=== PATIENT | female | born 1980 ===

== ENCOUNTER 2025-07-08 15:46 | Outpatient (AMB) | payer OTHER, SELFPAY ==
--- NOTE | 2025-07-08 15:50 | A.OFFPC_ITS ---
Vital Signs 07/08/25 16:20 Height 5 ft 4 in Weight 190 lb 6 oz BMI 32.7 BP 120/68 Blood Pressure Location Rt brachial Position Sitting Respiration 15 Pulse 98 Pulse Source Pulse Oximeter Temp 97.6 F Temp Source Temporal Artery Scan Pulse Oximetry (%) 98 Oxygen Delivery Method Room Air Intake Visit Reasons: other Intake Note: Ivory presents in the office today to establish care. Allergies No Known Allergies Allergy (Verified 07/08/25 16:11) Medication List - Last Reconciled 07/09/25 by CHAYO Yi acetaminophen 1,000 mg PO Q6H PRN ascorbate calcium (vitamin C) 500 mg PO DAILY escitalopram oxalate (Lexapro) 10 mg PO DAILY famotidine 40 mg PO DAILY gabapentin 300 mg PO TID levocetirizine (Xyzal) 5 mg PO DAILY levonorgestrel (Kyleena) intrauterine multivitamin (Daily Multi-Vitamin tablet) 1 tab PO DAILY phenazopyridine 95 mg PO TID PRN Saccharomyces boulardii (Daily Probiotic (S. boulardii)) 250 mg PO BID spironolactone 100 mg PO DAILY valacyclovir (Valtrex) 1,000 mg PO DAILY zinc amino acid chelate mg PO Tobacco use date assessed: 07/08/25 Dental Screening Dental Screen Date: 07/08/25 Did you have a dental visit in the last 12 months?: Yes Did you have a dental problem in the last 6 months where you did not have access to dental care?: No Was dental information given to patient?: Patient has dentist HPI HPI Comments History of Present Illness Details This is a 45-year-old female with a past medical history of chronic lower back pain, anxiety and depression, GERD with gastritis, acne and HSV presenting to establish care. The patient injured her lower back at work when lifting boxes several years ago. She has a protruding L5-S1 disc. She has bilateral sciatica. She completed 3 months of physical therapy. She saw Dr. Sierra who did not recommend surgery. She was referred to [facility]. She is waiting for workman's comp to approve this. She is also waiting on a call from her medical transcription editor to discuss the 2nd opinion with another surgeon. She takes gabapentin 900 mg nightly, and she also treats pain with acetaminophen and ibuprofen. It does help. She did not respond to Flexeril. Acne is treated with spironolactone. Her last physical was in February, but she did not have routine labs done because she was transferring care. Orders placed. She has an IUD. Recommended annual gynecology visit. Patient had colonoscopy and EGD when she was being evaluated for GERD and gastritis. She takes famotidine 40 mg daily. She is due for her next colonoscopy at age [age] years old. She has no family history of colon cancer. She has a history of gestational diabetes and would like a hemoglobin A1c checked. Anxiety and depression is treated with sertraline 150 mg daily. Patient does not find like it is very effective for her. She is interested in changing it. ROS: Constitutional: No unexplained weight loss, fever, chills or night sweats. Gastrointestinal: No blood in stools. See HPI Psychiatric: See HPI Physical exam: Constitutional: Alert, in no distress. Neck: Supple, Full range of motion. No lymphadenopathy. No palpable thyroid masses. Respiratory: Clear to auscultation. Cardiovascular: S1 S2 regular. No murmurs. Neurologic: No focal neurological deficits. Psychiatric: Normal mood and affect [facility] Medical History (Updated 07/09/25 @ 10:32 by CHAYO Yi) HSV (herpes simplex virus) infection Acne History of gestational diabetes Screening for cardiovascular condition Hx of mammogram Headache Anxiety and depression Malignant melanoma Acid reflux Gastritis Family History (Updated 07/08/25 @ 16:20 by Shanthi Holder CMA) Mother Hypertension Maternal Grandfather Hyperlipidemia Skin cancer Social History (Updated 07/08/25 @ 16:20 by Shanthi Holder CMA) Housing: Apartment Alcohol intake: current Patient Tobacco Use Status: Former Tobacco user Cigarette Packs Per Day: 1 Cigarettes Per Day: 5 Years Smoked: 10 e-Cigarette/Vaping Use: Former Use Second Hand Smoke Exposure: No Substance Use Type: Marijuana service: No Current occupational status: employed Current occupation: [employer] Current occupational exposures/hazards: No Cognitive needs: No Hearing needs: No Vision needs: No Female Reproductive History Menstrual Date of Mammogram: 12/05/23 Questionnaire PHQ-9 Over the last 2 weeks, how often have you been bothered by any of the following problems? 1. Little interest or pleasure in doing things: several days 2. Feeling down, depressed, or hopeless: more than half the days 3. Trouble falling or staying asleep, or sleeping too much: nearly every day 4. Feeling tired or having little energy: nearly every day 5. Poor appetite or overeating: more than half the days 6. Feeling bad about yourself - or that you are a failure or have let yourself or your family down: several days 7. Trouble concentrating on things, such as reading the newspaper or watching television: more than half the days 8. Moving or speaking so slowly that other people could have noticed. Or the opposite - being so fidgety or restless that you have been moving around a lot more than usual: more than half the days 9. Thoughts that you would be better off or of hurting yourself in some way: not at all Total score: 16 Depression Screening Interpretation: Positive Depression Screening Follow-up: Existing condition and New Medication prescribed Depression Screening Done: Yes 24679 - PHQ-9 Billing: Yes Source: Developed by Drs. Molina Soto, Lucille Arriaga, Supa Downey and colleagues, with an educational lisa from [employer]. Thrive Questionnaire Date Thrive assessed: 07/08/25 I am a: Patient What is your living situation today?: I have a steady place to live Within the past 12 months, did the food you bought not last and you didn't have the money to get more?: Never true Within the past 12 months, did you worry whether your food would run out before you got money to buy more?: Never true Do you have trouble paying for medicines?: No Do you have trouble getting transportation to medical appointments?: No Do you have trouble paying your heating and electricity bill?: No Do you have trouble taking care of your child, family member or friend?: No Do you have trouble with day-to-day activities such as bathing, preparing meals, shopping, managing finances, etc.?: No Are you currently unemployed and looking for a job?: No Are you interested in more education?: No Please select the resources that you would like help with: None Currently or been in a relationship where the following occur: No concerns reported THRIVE Score: 0 AUDIT C Alcohol Use Questionnaire (AUDIT-C) 1. How often do you have a drink containing alcohol?: Monthly or less 2. How many drinks containing alcohol do you have on a typical day when you are drinking?: 1 or 2 3. How often do you have six or more drinks on one occasion?: Never Total Score: 1 BETTY-7 AMB Questionnaire BETTY-7 Date BETTY - 7 assessed: 07/08/25 Feeling nervous, anxious, or on edge: 3 = Nearly every day Not being able to stop or control worryin = Nearly every day Worrying too much about different things: 3 = Nearly every day Trouble relaxin = Nearly every day Being so restless that it is hard to sit still: 3 = Nearly every day Becoming easily annoyed or irritable: 3 = Nearly every day Feeling afraid as if something awful might happen: 1 = Several days Total BETTY-7 score (0-4 normal; 5-9 mild; 10-14 moderate; 15-21 severe): 19 Source: Developed by Drs. Molina Soto, Lucille Arriaga, Supa Downey and colleagues, with an educational lisa from [employer]. BETTY-7 Assessment Billing BETTY-7 Assessment Tool: BETTY-7 Assessment 10389 Physical exam (Primary Care) Vital Signs: Last Vital Signs Temp 97.6 F 07/08/25 16:20 Pulse 98 07/08/25 16:20 Resp 15 07/08/25 16:20 BP 120/68 07/08/25 16:20 Pulse Ox 98 07/08/25 16:20 Oxygen Delivery Method Room Air 07/08/25 16:20 BMI result Body Mass Index 32.7 Tobacco/Smoking Status: Tobacco use Status Tobacco use date assessed 07/08/25 07/08/25 16:25 Patient Tobacco Use Status Former Tobacco user 07/08/25 16:25 e-Cigarette/Vaping Use Former Use 07/08/25 16:25 PHQ-9: PHQ-9 Score PHQ-9: Total score 16 07/08/25 16:54 Depression Screening Interpretation: Positive Depression Screening Follow-up: Existing condition and New Medication prescribed Thrive Assessment: Date of Thrive Assessment Date Thrive assessed 07/08/25 07/08/25 15:51 Currently or been in a relationship where the following occur: No concerns r eported Office Procedures Flu Questionnaire Does the patient have a severe egg allergy?: No Does the patient have severe life threatening allergies?: No Does the patient have a fever or illness today?: No Has the patient ever had Guillain-Salem Syndrome?: No Has the patient ever had any past reaction to a flu shot?: No Immunizations Fluarix 1641-5177 (PF) 45 mcg (15 mcg x 3)/0.5 mL IM syringe Performing Provider: CHAYO Yi Performing Location: [facility] [place] [facility] Administered by: Shanthi Holder CMA on 07/08/25 16:56 Dose Route Admin Location Dispensed Lot Number Expiration Date NDC Tape Deck Installer 0.5 mL IM Left Deltoid 0.5 mL [id number] 03/08/26 [id number] [employer] VIS Given Date VIS Provided VIS Publication Date 07/08/25 Single Vaccine 24 Eligibility Eligibility Date Funding Source Not [facility] Eligible 07/08/25 Private Coding Level of Care Code New Pt Level 4 (38949) Complex EM visit Add On G2211 Diagnoses Anxiety and depression F41.9; F32.A Screening for cardiovascular condition Z13.6 History of gestational diabetes Z86.32 Acne L70.9 HSV (herpes simplex virus) infection B00.9 Acid reflux K21.9 Additional Codes BETTY-7 Assessment Billing - BETTY-7 Assessment Tool: BETTY-7 Assessment 36315 ([id number]) PHQ-9 - 49439 - PHQ-9 Billing: Yes ([id number]) Assessment & Plan Assessment & Plan (1) Anxiety and depression: Code(s): F41.9 - Anxiety disorder, unspecified; F32.A - Depression, unspecified Category: Medical Plan: She would like to make a change to her medication regimen. She has not taken other SSRIs. We discussed options including titrating dose of Zoloft, addition of buspirone or trying a different SSRI. She would like to proceed with a trial of a different medication. We will switch to Lexapro with a cross taper. Black box warning reviewed. (2) Screening for cardiovascular condition: Code(s): Z13.6 - Encounter for screening for cardiovascular disorders Category: Medical (3) History of gestational diabetes: Code(s): Z86.32 - Personal history of gestational diabetes Category: Medical Plan: Check hemoglobin A1c. (4) Acne: Code(s): L70.9 - Acne, unspecified Category: Medical Plan: Continue spironolactone (5) HSV (herpes simplex virus) infection: Code(s): B00.9 - Herpesviral infection, unspecified Category: Medical Plan: Continue Valtrex. (6) Acid reflux: Code(s): K21.9 - Gastro-esophageal reflux disease without esophagitis Category: Medical Plan: Continue avoidance of triggers and continue famotidine. Plan Follow up in 4-6 weeks for med check. Orders: Orders Vitamin D 25-OH (D2 and D3) 07/08/25 F32.A - Depression, unspecified, F41.9 - Anxiety disorder, unspecified, Z13.6 - Encounter for screening for cardiovascular disorders, Z86.32 - Personal history of gestational diabetes Lipid Panel 07/08/25 E78.5 - Hyperlipidemia, unspecified, F32.A - Depression, unspecified, F41.9 - Anxiety disorder, unspecified, Z13.6 - Encounter for screening for cardiovascular disorders, Z86.32 - Personal history of gestational diabetes Comprehensive Met. Panel 07/08/25 F32.A - Depression, unspecified, F41.9 - Anxiety disorder, unspecified, Z13.6 - Encounter for screening for cardiovascular disorders, Z86.32 - Personal history of gestational diabetes Hemoglobin A1c 07/08/25 F32.A - Depression, unspecified, F41.9 - Anxiety disorder, unspecified, R73.9 - Hyperglycemia, unspecified, Z13.6 - Encounter for screening for cardiovascular disorders, Z86.32 - Personal history of gestational diabetes Complete Blood Count no Diff 07/08/25 F32.A - Depression, unspecified, F41.9 - Anxiety disorder, unspecified, Z13.6 - Encounter for screening for cardiovascular disorders, Z86.32 - Personal history of gestational diabetes Influenza 9020-4114 Immunization 07/08/25 Z23 - Encounter for immunization TSH reflex Free T4 Today F32.A - Depression, unspecified, F41.9 - Anxiety disorder, unspecified Referrals BREAD WRAPPER OPERATOR Referral Z01.419 - Encounter for gynecological examination (general) (routine) without abnormal findings Medications: New escitalopram oxalate (Lexapro) Week 1: take Lexapro 5 mg daily and reduce sertraline to 100 mg daily. Week 2: increase Lexapro to 10 mg and reduce sertraline to 50 mg daily. Week 3: continue Lexapro 10 mg daily and stop sertraline 50 mg daily. 10 mg PO DAILY 90 tabs 0RF
[2025-07-08 16:20] VITALS: BP 120/68; PULSE 98; RESP 15; TEMP 36.4; O2SAT 98; BMI 32.7
--- OUTSIDE RECORDS SUMMARY | 2025-07-08 18:08 | XMS_ITS | Encounter Summary ---
Author Organization [facility] Address [address] [facility] [address] [place] [phone] Phone Care Team Providers Care Insurance Verify Rep Name Role Phone Ivory Jimenez MD Unavailable [phone] Luis Andrews MD Unavailable [phone] Malissa Johnson MD Primary Care Provider [phone] Malissa Johnson MD Unavailable Dylan De Guzman MD Unavailable [phone] Malissa Johnson MD Unavailable Malissa Johnson MD Unavailable Encounter Details Date Type Department Care Team (Late st Contact Info) Description 04/10/2021 Ancillary Orders [facility] IM[facility] Imaging Services [address] [place], [place] [id number] System, Provider Not In, [facility] [address] [address] Social History Tobacco Use Types Packs/Day Years Used Date Smoking Tobacco: Former Cigarettes 0.3 10 0 01/29/2007 - 01/29/2017 Smokeless Tobacco: Never Alcohol Use Standard Drinks/Week Comments Yes 0 (1 standard drink = 0.6 oz pur e alcohol) social Comments No Sex and Gender Information Value Date Recorded Sex Assigned at Female 10/09/2023 3:20 PM EST Legal Sex Female 3:27 PM EDT Gender Identity Female 10/09/2023 3:20 PM EST Sexual Orientation Straight 10/09/2023 3: 20 PM EST documented as of this encounter Plan of Treatment Upcoming Encounters Date Type Department Care Team (Late st Contact Info) Description 03/16/2026 8:00 AM EDT Office Visit [facility] Primary Care [address] [address] Malissa Johnson MD [address] [place] [phone] [email or web address] documented as of this encounter Results * Mammogram Outside (No Interpretation) (02/18/2020 12:00 AM EDT) Narrative [facility] IM[facility] INTERFACES - 04/10/2021 10:10 AM EDT This study is for PACS storage only and not for interpretation. us Provider Not In System [facility] IM[facility] OUTSIDE IMAGING W /OUT INTERPRETATION Final Result Performing Organization Address [facility] de Phone Number [facility] INTERFACES * US Breast Outside (No Interpretation) (05/13/2019 12:05 AM EDT) Narrative [facility] INTERFACES - 04/10/2021 10:09 AM EDT This study is for PACS storage only and not for interpretation. us Provider Not In System [facility] OUTSIDE IMAGING W /OUT INTERPRETATION Final Result Performing Organization Address [facility] de Phone Number [facility] INTERFACES * Mammogram Outside (No Interpretation) (05/13/2019 12:00 AM EDT) Narrative [facility] IM[facility] INTERFACES - 04/10/2021 10:09 AM EDT This study is for PACS storage only and not for interpretation. us Provider Not In System [facility] OUTSIDE IMAGING W /OUT INTERPRETATION Final Result Performing Organization Address [facility] de Phone Number [facility] INTERFACES documented in this encounter Visit Diagnoses Not on filedocumented in this encounter Additional Health Concerns Assessment Noted Time PHQ-2 Depression Total Score: 1 09/19/19 21 2:57 PM EST documented as of this encounter Care Teams Insurance Verify Rep Relationship Specialty Start Date End Date Malissa Johnson MD PCP - General Internal Medicine 06/14/20 Ivory Jimenez MD Dermatology 04/28/18 Luis Andrews MD Dermatology 04/23/19 Malissa Johnson MD [address] [place] [phone] Insurance Assigned Provider 11/12/21 01/13/22 Dylan De Guzman MD [address] [place] [address] [email or web address] Insurance Assigned Provider 01/13/22 02/17/22 Malissa Johnson MD [address] [place] [phone] Insurance Assigned Provider 02/17/22 06/16/22 Malissa Johnson MD [address] [place] [phone] Insurance Assigned Provider 12/14/23 03/20/25 documented as of this encounter Additional Source Comments The information contained in this document represents components of the legal health record. It is not the complete legal health record.[facility]
--- OUTSIDE RECORDS SUMMARY | 2025-07-08 18:08 | XMS_ITS | Encounter Summary ---
Author Organization [facility] Address [email or web address] [facility] [address] [place] [phone] Phone Care Team Providers Care Embedded Case Manager Name Role Phone Ivory Jimenez MD Unavailable [phone] Luis Andrews MD Unavailable Malissa Johnson MD Primary Care Provider [phone] Malissa Johnson MD Unavailable Encounter Details Date Type Department Care Team (Late st Contact Info) Description 10/30/2022 Procedure [facility]- Breast Imaging- [address] [address] Social History Tobacco Use Types Packs/Day Years Used Date Smoking Tobacco: Former Cigarettes 0.3 10 0 01/29/2007 - 01/29/2017 Passive Smoke Exposure: Never Smokeless Tobacco: Never Alcohol Use Standard Drinks/Week [...] Description 03/16/2026 8:00 AM EDT Office Visit [facility] Primary Care [address] [address] Malissa Johnson MD [address] [place] [phone] [email or web address] documented as of this encounter Visit Diagnoses Not on filedocumented in this encounter Additional Health Concerns Assessment Noted Time PHQ-2 Depression Total Score: 1 02/06/20 23 12:24 PM EDT documented as of this encounter Care Teams Embedded Case Manager Relationship Specialty Start Date End Date Malissa Johnson MD PCP - General Internal Medicine 06/14/20 Ivory Jimenez MD Dermatology 04/28/18 Luis Andrews MD Dermatology 04/23/19 Malissa Johnson MD [address] [place] [phone] Insurance Assigned Provider 12/14/23 03/20/25 documented as of this encounter Additional Source Comments The information contained in this document represents components of the legal health record. It is not the complete legal health record.[facility]
--- OUTSIDE RECORDS SUMMARY | 2025-07-08 18:08 | XMS_ITS | Encounter Summary ---
Author Organization [facility] Address [address] [place] [address] Phone Care Team Providers Care Principal Associate Name Role Phone Ivory Jimenez MD Unavailable Luis Andrews MD Unavailable Malissa Johnson MD Primary Care Provider Malissa Johnson MD Unavailable Encounter Details Date Type Department Care Team (Late st Contact Info) Description 12/25/2024 Ancillary Orders [facility]- Breast Imaging, [facility] [address] [place], [place] [phone] Malissa Johnson MD [address] [place] [phone] [email or web address] Breast symptom (Primary Dx) Social History Tobacco Use Types Packs/Day Years Used Date Smoking Tobacco: Former Cigarettes 0.3 10 0 01/29/2007 - 01/29/2017 Passive Smoke Exposure: Never Smokeless Tobacco: Never Alcohol Use Standard Drinks/Week Comments Yes 0 (1 standard drink = 0.6 oz pur e alcohol) social Education Answer Date Recorded Are you interested in more education? Not on francis e 01/03/2023 Are you concerned about learning? Not on file 01/03/2023 No 01/03/2023 No 01/03/2023 Digital Access Answer Date Recorded No 01/30/2023 No 01/30/2023 Reliable internet access at home? Not on file 01/30/2023 Device with a working camera? Not on file Intimate Partner Violence Answer Date R ecorded Denied Basic Needs Not on file 02/13/2024 In the past 12 months have y ou been in a relationship with a person who hurts, threatens, or tries to control you? No 02/13/2024 Worried food would run out Not on file 02/12 In the past 12 months have y ou been in a relationship with a person who hurts, threatens, or tries to control you? No 02/13/2024 Comments No Sex and Gender Information Value [...] Description 03/16/2026 8:00 AM EDT Office Visit [facility] Primary Care [address] [address] Malissa Johnson MD [address] [place] [phone] [email or web address] Scheduled Orders Name Type Priority Associated Diagnoses Orde r Schedule US Breast (Right) Imaging Routine Breast symptom 1 Occurrences starting 12/25/2024 until 12/25/2026 documented as of this encounter Visit Diagnoses Diagnosis Breast symptom- Primary documented in this encounter Additional Health Concerns Assessment Noted Time PHQ-2 Depression Total Score: 2 02/13/20 24 10:46 AM EDT documented as of this encounter Care Teams Principal Associate Relationship Specialty Start Date End Date Malissa Johnson MD [email or web address] PCP - General Internal Medicine 06/14/20 Ivory Jimenez MD [email or web address] Dermatology 04/28/18 Luis Andrews MD Dermatology 04/23/19 Malissa Johnson MD [address] [place] [address] [email or web address] Insurance Assigned Provider 12/14/23 03/20/25 documented as of this encounter Additional Source Comments The information contained in this document represents components of the legal health record. It is not the complete legal health record.[facility]
--- OUTSIDE RECORDS SUMMARY | 2025-07-08 18:08 | XMS_ITS | Encounter Summary ---
Author Organization [facility] Address [address] [place] [address] Phone Care Team Providers Care Medical Device Engineer Name Role Phone Ivory Jimenez MD Unavailable [phone] Luis Andrews MD Unavailable Malissa Johnson MD Primary Care Provider Malissa Johnson MD Unavailable Dylan De Guzman MD Unavailable [phone] Malissa Johnson MD Unavailable Malissa Johnson MD Unavailable Encounter Details Date Type Department Care Team (Late st Contact Info) Description 04/06/2021 Procedure [facility], Breast Ultrasound [address] [place] [address] Social History Tobacco Use Types Packs/Day Years [...] 03/16/2026 8:00 AM EDT Office Visit [facility] [address] [address] Malissa Johnson MD [address] [place] [address] [email or web address] documented as of this encounter Visit Diagnoses Not on filedocumented in this encounter Additional Health Concerns Assessment Noted Time PHQ-2 Depression Total Score: 1 09/19/19 21 2:57 PM EST documented as of this encounter Care Teams Medical Device Engineer Relationship Specialty Start Date End Date Malissa Johnson MD PCP - General Internal Medicine 06/14/20 Ivory Jimenez MD Dermatology 04/28/18 Luis Andrews MD Dermatology 04/23/19 Malissa Johnson MD [address] [place] [phone] Insurance Assigned Provider 11/12/21 01/13/22 Dylan De Guzman MD [address] [place] [phone] Insurance Assigned Provider 01/13/22 02/17/22 Malissa Johnson MD [address] [place] [address] [email or web address] Insurance Assigned Provider 02/17/22 06/16/22 Malissa Johnson MD [address] [place] [address] [email or web address] Insurance Assigned Provider 12/14/23 03/20/25 documented as of this encounter Additional Source Comments The information contained in this document represents components of the legal health record. It is not the complete legal health record.[facility]
--- OUTSIDE RECORDS SUMMARY | 2025-07-08 18:08 | XMS_ITS | Encounter Summary ---
Author Organization [facility] Address [email or web address] [place] [address] Phone Care Team Providers Care Coremaking Machine Operator Name Role Phone Tony Ivory Trujillo MD Unavailable Luis Andrews MD Unavailable [phone] Holland Mercer MD Primary Care Provider Malissa Johnson MD Primary Care Provider [phone] Malissa Johnson MD Unavailable Malissa Johnson MD Unavailable Dylan De Guzman MD Unavailable [phone] Malissa Johnson MD Unavailable Malissa Johnson MD Unavailable Encounter Details Date Type Department Care Team (Latest Contact Info) Description 10/22/2019 Transcribe Orders [facility] [place] [place] [address] [place] [address] Angela Cobb MD [address] [place] [address] [email or web address] Otalgia of both ears (Primary Dx) Social History Tobacco Use Types [...] Description 03/16/2026 8:00 AM EDT Office Visit [facility] [address] [address] Malissa Johnson MD [address] [place] [address] [email or web address] Scheduled Orders Name Type Priority Associated Diagnoses Orde r Schedule Hearing Test Audiology Routine Otalgia of both ears Expected: 10/22/2019, Expires: 10/22/2020 documented as of this encounter Visit Diagnoses Diagnosis Otalgia of both ears- Primary documented in this encounter Additional Health Concerns Infection Onset Date Last Indicated Resolved Time CoV-Exposed Comment:Recent close contact 06/21/2020 06/21/2020 07/05/2020 1:24 AM EDT CoV-Exposed Comment:Recent close contact 07/28/2020 07/28/2020 08/11/2020 1:23 AM EST Assessment Noted Time PHQ-2 Depression Total Score: 0 10/17/19 8:26 AM EST documented as of this encounter Care Teams Coremaking Machine Operator Relationship Specialty Start Date End Date Holland Mercer MD [address] [place] [address] [email or web address] PCP - General Internal Medicine 07/20/19 06/13/20 Malissa Johnson MD [address] [place] [address] PCP - General Internal Medicine 06/14/20 Ivory Jimenez MD Dermatology 04/28/18 Luis Andrews MD Dermatology 04/23/19 Malissa Johnson MD [address] [place] [address] [email or web address] Insurance Assigned Provider 08/14/20 03/18/21 Malissa Johnson MD [address] [place] [address] [email or web address] Insurance Assigned Provider 11/12/21 01/13/22 Dylan De Guzman MD [address] [place] [address] [email or web address] Insurance Assigned Provider 01/13/22 02/17/22 Malissa Johnson MD [address] [place] [address] [email or web address] Insurance Assigned Provider 02/17/22 06/16/22 Malissa Johnson MD [address] [place] [address] [email or web address] Insurance Assigned Provider 12/14/23 03/20/25 documented as of this encounter Additional Source Comments The information contained in this document represents components of the legal health record. It is not the complete legal health record.[facility]
--- OUTSIDE RECORDS SUMMARY | 2025-07-08 18:08 | XMS_ITS | Encounter Summary ---
Author Organization [facility] Address [address] [place] [address] Phone Care Team Providers Care Special Projects Manager Name Role Phone Ivory Jimenez MD Unavailable [phone] Luis Andrews MD Unavailable Malissa Johnson MD Primary Care Provider Malissa Johnson MD Unavailable Encounter Details Date Type Department Care Team (Late st Contact Info) Description 01/21/2024 Ancillary Orders [facility] Primary Care [address] [address] Malissa Johnson MD [address] [place] [phone] [email or web address] Visit for screening (Primary Dx) Social History Tobacco Use Types [...] with a working camera? Not on file Comments No Sex and Gender Information Value [...] Description 03/16/2026 8:00 AM EDT Office Visit [facility] Primary Care [address] [address] Malissa Johnson MD [address] [place] [address] [email or web address] documented as of this encounter Results * BI MAMMOGRAM SCREENING WITH TOMOSYNTHESIS WITH CAD (BILATERAL) (12/25/2024 12:05 PM EDT) Anatomical Region Laterality Modality Breast Left, Breast Right, Breast Bilateral Bila teral Mammography 12/25/2024 12:0 6 PM EDT Impressions 12/25/2024 12:09 PM EDT 1. No mammographic abnormality in the right breast. However, the patient reports clinical symptoms for which additional imaging evaluation is recommended with ultrasound. 2. No mammographic evidence of malignancy in the left breast. BI-RADS 0-S INCOMPLETE Needs additional imaging evaluation The patient will be notified of the results and recommendations. The mammography department will contact the patient to arrange for the additional imaging. Narrative 12/25/2024 12:09 PM EDT BI MAMMOGRAM SCREENING WITH TOMOSYNTHESIS WITH CAD (BILATERAL) Additional patient information: Screening. Right breast pain. COMPARISON: Comparison is made with relevant prior imaging. Breast composition: There are scattered areas of fibroglandular density. FINDINGS: Right No significant masses, suspicious calcifications or other abnormalities are identified mammographically in the right breast. Left No abnormal masses, suspicious calcifications, or other significant findings are identified mammographically in the left breast. Procedure Note Cora Dennis MD - 12/25/2024 BI MAMMOGRAM SCREENING WITH TOMOSYNTHESIS WITH CAD (BILATERAL) Additional patient information: Screening. Right breast pain. COMPARISON: Comparison is made with relevant prior imaging. Breast composition: There are scattered areas of fibroglandular density. FINDINGS: Right No significant masses, suspicious calcifications or other abnormalitiesare identified mammographically in the right breast. Left No abnormal masses, suspicious calcifications, or other significantfindings are identified mammographically in the left breast. IMPRESSION: 1. No mammographic abnormality in the right breast. However, the patientreports clinical symptoms for which additional imaging evaluation isrecommended with ultrasound. 2. No mammographic evidence of malignancy in the left breast. BI-RADS 0-S INCOMPLETE Needs additional imaging evaluation The patient will be notified of the results and recommendations. Themammography department will contact the patient to arrange for theadditional imaging. Malissa Johnson MD IMG MG EXAMS Final Result documented in this encounter Visit Diagnoses Diagnosis Visit for screening- Primary Visit for screening documented in this encounter Additional Health Concerns Assessment Noted Time PHQ-2 Depression Total Score: 1 02/06/20 23 12:24 PM EDT documented as of this encounter Care Teams Special Projects Manager Relationship Specialty Start Date End Date Malissa Johnson MD PCP - General Internal Medicine 06/14/20 Ivory Jimenez MD Dermatology 04/28/18 Luis Andrews MD Dermatology 04/23/19 Malissa Johnson MD [address] [place] [address] (work) [email or web address] Insurance Assigned Provider 12/14/23 03/20/25 documented as of this encounter Additional Source Comments The information contained in this document represents components of the legal health record. It is not the complete legal health record.[facility]
--- OUTSIDE RECORDS SUMMARY | 2025-07-08 18:08 | XMS_ITS | Encounter Summary ---
Author Organization [facility] Address [address] [place] [address] Phone Care Team Providers Care Housekeeper Supervisor Name Role Phone Malissa Johnson MD Primary Care Provider [phone] Malissa Johnson MD Unavailable Ivory Jimenez MD Unavailable [phone] Luis Andrews MD Unavailable Holland Mercer MD Primary Care Provider [phone] Malissa Johnson MD Unavailable Malissa Johnson MD Primary Care Provider [phone] Malissa Johnson MD Unavailable Malissa Johnson MD Unavailable Dylan De Guzman MD Unavailable [phone] Malissa Johnson MD Unavailable Malissa Johnson MD Unavailable Encounter Details Date Type Department Care Team (Late st Contact Info) Description 01/30/2017 Transcribe Orders [facility] [address] [place] [address] Briana Anderson, ANAID [address] [place] [address] [email or web address] Abdominal pain, generalized (Primary Dx) Social History Tobacco Use Types Packs/Day Years Used Date Smoking Tobacco: Former Cigarettes Q uit: 06/06/2011 Comments Unknown Sex and Gender Information Value Date Recorded Sex Assigned at Female 10/09/2023 3:20 PM EST Legal Sex Female 3:27 PM EDT Gender Identity Female 10/09/2023 3:20 PM EST Sexual Orientation Straight 10/09/2023 3: 20 PM EST documented as of this encounter Plan of Treatment Upcoming Encounters Date Type Department Care Team (Late st Contact Info) Description 03/16/2026 8:00 AM EDT Office Visit [facility] Primary Care [address] [address] Malissa Johnson MD [address] [place] [address] [email or web address] documented as of this encounter Results * H. pylori antigen, stool (01/30/2017 2:56 PM EDT) [facility] H[employer] Negative Negative [facility] DPT OF LAB MED AND PAT+ Stool (Stool) 01/30/2017 2:5 6 PM EDT 01/30/2017 5:30 PM EDT Briana Anderson NP BODY FLUIDS AND STOOLS ORDERABLES Final Result [facility] DPT OF LAB MED AND PAT+ [address] [place] [address] documented in this encounter Visit Diagnoses Diagnosis Abdominal pain, generalized- Primary documented in this encounter Additional Health Concerns Infection Onset Date Last Indicated Resolved Time CoV-Exposed Comment:Recent close contact 06/21/2020 06/21/2020 07/05/2020 1:24 AM EDT CoV-Exposed Comment:Recent close contact 07/28/2020 07/28/2020 08/11/2020 1:23 AM EST documented as of this encounter Care Teams Housekeeper Supervisor Relationship Specialty Start Date End Date Malissa Johnson MD [email or web address] PCP - General Internal Medicine 07/19/17 07/19/19 Holland Mercer MD [address] [place] [phone] [email or web address] PCP - General Internal Medicine 07/20/19 06/13/20 Malissa Johnson MD [email or web address] PCP - General Internal Medicine 06/14/20 Malissa Johnson MD [address] [place] [address] [email or web address] Insurance Assigned Provider 12/07/17 07/19/19 Ivory Jimenez MD [address] [place] [address] [email or web address] Dermatology 04/28/18 Luis Andrews MD [address] [place] [phone] [email or web address] Dermatology 04/23/19 Malissa Johnson MD [address] [place] [address] [email or web address] Insurance Assigned Provider 12/07/17 10/09/19 Malissa Johnson MD [address] [place] [phone] Insurance Assigned Provider 08/14/20 03/18/21 Malissa Johnson MD [address] [place] [address] [email or web address] Insurance Assigned Provider 11/12/21 01/13/22 Dylan De Guzman MD [address] [place] [address] [email or web address] Insurance Assigned Provider 01/13/22 02/17/22 Malissa Johnson MD [address] [place] [phone] Insurance Assigned Provider 02/17/22 06/16/22 Malissa Johnson MD [address] [place] [address] [email or web address] Insurance Assigned Provider 12/14/23 03/20/25 documented as of this encounter Additional Source Comments The information contained in this document represents components of the legal health record. It is not the complete legal health record.[facility]
--- OUTSIDE RECORDS SUMMARY | 2025-07-08 18:08 | XMS_ITS | Encounter Summary ---
Author Organization [facility] Address [address] [place] [address] Phone Care Team Providers Care Roof Foreman Name Role Phone Ivory Jimenez MD Unavailable Luis Andrews MD Unavailable Malissa Johnson MD Primary Care Provider Malissa Johnson MD Unavailable Encounter Details Date Type Department Care Team (Late st Contact Info) Description 10/01/2022 Ancillary Orders [facility]- Breast Imaging, [facility] [address] [place], [place] [id number] Malissa Johnson MD [address] [place] [address] [email or web address] Abnormal finding on breast imaging Social History Tobacco Use Types Packs/Day Years [...] 03/16/2026 8:00 AM EDT Office Visit [facility] Primary Care [address] [address] Malissa Johnson MD [address] [place] [address] [email or web address] documented as of this encounter Results * BI MAMMOGRAM DIAGNOSTIC WITH TOMOSYNTHESIS WITH CAD (RIGHT) (10/30/2022 9:02 AM EST) Anatomical Region Laterality Modality Breast Right, Breast Bilateral Right M ammography 10/30/2022 9:14 AM EST Impressions 10/30/2022 9:19 AM EST Right Breast: Negative, no mammographic evidence of malignancy. Right Assessment: BI-RADS 1 Negative. Right Recommendation: Right Mammography Screening Right Recommendation Due Date: 12 Months OVERALL Assessment: BI-RADS 1 Negative. Results were discussed with the patient at the time of the study. The recommendation above has been entered into a reminder system to monitor and facilitate patient compliance. Narrative 10/30/2022 9:19 AM EST Indication: Questioned right asymmetry on recent screening mammogram. TECHNIQUE: Digital Mammography and tomosynthesis were used to obtain images. Computer Aided Detection was used to aid in interpretation. COMPARISON: Comparison is made with relevant prior imaging in PACS. Density: There are scattered areas of fibroglandular density FINDINGS: Right Breast: The questioned asymmetry in the upper MLO view at middle depth seen recent screening study does not persist on additional imaging, consistent with benign superimposition of breast parenchyma. No significant masses, suspicious calcifications, or other abnormalities are seen. Procedure Note Emilee Shearer MD - 10/30/2022 Indication: Questioned right asymmetry on recent screening mammogram. TECHNIQUE: Digital Mammography and tomosynthesis were used to obtain images. ComputerAided Detection was used to aid in interpretation. COMPARISON: Comparison is made with relevant prior imaging in PACS. Density: There are scattered areas of fibroglandular density FINDINGS: Right Breast: The questioned asymmetry in the upper MLO view at middle depth seen recentscreening study does not persist on additional imaging, consistent withbenign superimposition of breast parenchyma. No significant masses,suspicious calcifications, or other abnormalities are seen. IMPRESSION: Right Breast: Negative, no mammographic evidence of malignancy. Right Assessment: BI-RADS 1 Negative. Right Recommendation: Right Mammography Screening Right Recommendation Due Date: 12 Months OVERALL Assessment: BI-RADS 1 Negative. Results were discussed with the patient at the time of the study. The recommendation above has been entered into a reminder system tomonitor and facilitate patient compliance. us Malissa Johnson MD IMG MG EXAMS Final Result documented in this encounter Visit Diagnoses Diagnosis Abnormal finding on breast imaging Abnormal finding on breast imaging documented in this encounter Additional Health Concerns Assessment Noted Time PHQ-2 Depression Total Score: 0 02/01/20 22 12:43 PM EDT documented as of this encounter Care Teams Roof Foreman Relationship Specialty Start Date End Date Malissa Johnson MD PCP - General Internal Medicine 06/14/20 Ivory Jimenez MD Dermatology 04/28/18 Luis Andrews MD Dermatology 04/23/19 Malissa Johnson MD [address] [place] [phone] Insurance Assigned Provider 12/14/23 03/20/25 documented as of this encounter Additional Source Comments The information contained in this document represents components of the legal health record. It is not the complete legal health record.[facility]
--- OUTSIDE RECORDS SUMMARY | 2025-07-08 18:08 | XMS_ITS | Encounter Summary ---
Author Organization [facility] Address [address] [place] [address] Phone Care Team Providers Care Swing Saw Operator Name Role Phone Ivory Jimenez MD Unavailable [phone] Luis Andrews MD Unavailable [phone] Malissa Johnson MD Primary Care Provider Malissa Johnson MD Unavailable Encounter Details Date Type Department Care Team (Late st Contact Info) Description 10/30/2022 Ancillary Orders [facility] [address] [place] [address] Malissa Johnson MD [address] [place] [address] Visit for screening Social History Tobacco Use Types Packs/Day Years [...] 03/16/2026 8:00 AM EDT Office Visit [facility] Primary Care [address] [address] Malissa Johnson MD [address] [place] [phone] [email or web address] documented as of this encounter Results * (ABNORMAL) BI MAMMOGRAM SCREENING WITH TOMOSYNTHESIS WITH CAD (BILATERAL) (11/01/2023 2:14 PM EST) Anatomical Region Laterality Modality Breast Left, Breast Right, Breast Bilateral Bila teral Mammography 11/04/2023 6:35 AM EST Impressions 11/04/2023 1:13 PM EST 1. Asymmetry in the left breast for which additional imaging is recommended with diagnostic mammography and possible ultrasound. 2. No mammographic evidence of malignancy in the right breast. BI-RADS 0 INCOMPLETE Needs additional imaging evaluation The patient will be notified of the results and recommendations. The mammography department will contact the patient to arrange for the additional imaging. Narrative 11/04/2023 1:13 PM EST BI MAMMOGRAM SCREENING WITH TOMOSYNTHESIS WITH CAD (BILATERAL) Additional patient information: Screening. COMPARISON: Comparison is made with relevant prior imaging. Breast composition: There are scattered areas of fibroglandular density. FINDINGS: Right No abnormal masses, suspicious calcifications, or other significant findings are identified mammographically in the right breast. Left An asymmetry is present on MLO view in the central left breast at anterior depth. Procedure Note Cleo Briceno MBBS - 11/04/2023 BI MAMMOGRAM SCREENING WITH TOMOSYNTHESIS WITH CAD (BILATERAL) Additional patient information: Screening. COMPARISON: Comparison is made with relevant prior imaging. Breast composition: There are scattered areas of fibroglandular density. FINDINGS: Right No abnormal masses, suspicious calcifications, or other significantfindings are identified mammographically in the right breast. Left An asymmetry is present on MLO view in the central left breast at anteriordepth. IMPRESSION: 1. Asymmetry in the left breast for which additional imaging isrecommended with diagnostic mammography and possible ultrasound. 2. No mammographic evidence of malignancy in the right breast. BI-RADS 0 INCOMPLETE Needs additional imaging evaluation The patient will be notified of the results and recommendations. Themammography department will contact the patient to arrange for theadditional imaging. us Malissa Johnson MD IMG MG EXAMS Final Result documented in this encounter Visit Diagnoses Diagnosis Visit for screening Visit for screening documented in this encounter Additional Health Concerns Assessment Noted Time PHQ-2 Depression Total Score: 0 02/01/20 22 12:43 PM EDT documented as of this encounter Care Teams Swing Saw Operator Relationship Specialty Start Date End Date Malissa Johnson MD PCP - General Internal Medicine 06/14/20 Ivory Jimenez MD Dermatology 04/28/18 Luis Andrews MD Dermatology 04/23/19 Malissa Johnson MD [address] [place] [phone] Insurance Assigned Provider 12/14/23 03/20/25 documented as of this encounter Additional Source Comments The information contained in this document represents components of the legal health record. It is not the complete legal health record.[facility]
--- OUTSIDE RECORDS SUMMARY | 2025-07-08 18:08 | XMS_ITS | Encounter Summary ---
Author Organization [facility] Address [address] [facility] [address] [place] [address] Phone Care Team Providers Care Pharmacology Teacher Name Role Phone Ivoyr Jimenez MD Unavailable [phone] Luis Andrews MD Unavailable [phone] Malissa Johnson MD Primary Care Provider Malissa Johnson MD Unavailable Dylan De Guzman MD Unavailable [phone] Malissa Johnson MD Unavailable Malissa Johnson MD Unavailable Encounter Details Date Type Department Care Team (Late st Contact Info) Description 04/06/2021 Ancillary Orders [facility] [address] [place] [id number] Bettina Orozco NP [address] [facility] [address] [place] [address] Breast pain, left Social History Tobacco Use Types Packs/Day Years [...] Description 03/16/2026 8:00 AM EDT Office Visit [facility] Primary Care [address] [address] Malissa Johnson MD [address] [place] [id number] [email or web address] documented as of this encounter Results * BI US BREAST LIMITED (LEFT) (05/25/2021 10:14 AM EDT) Anatomical Region Laterality Modality Breast Left, Breast Bilateral Left Ul trasound 05/25/2021 10:0 8 AM EDT Impressions 05/25/2021 10:59 AM EDT Left Breast: No mammographic evidence of malignancy. No suspicious sonographic finding at the area of pain. Management of breast pain should be based on the clinical level of concern. Clinical evaluation and follow-up are recommended, with management to be determined based on the clinical assessment. Left Assessment: BI-RADS 1 Negative. Left Recommendation: Left Mammography Screening Left Recommendation Due Date: 12 Months Right Breast: Negative, no mammographic evidence of malignancy. Right Assessment: BI-RADS 1 Negative. Right Recommendation: Right Mammography Screening Right Recommendation Due Date: 12 Months OVERALL Assessment: BI-RADS 1 Negative. Results were discussed with the patient at the time of the study. The recommendation above has been entered into a reminder system to monitor and facilitate patient compliance. Narrative 05/25/2021 10:59 AM EDT Focal intermittent pain in the upper outer left breast for 19 months. TECHNIQUE: Digital Mammography and tomosynthesis were used to obtain images. Computer Aided Detection was used to aid in interpretation. Real-time ultrasound was performed using a high-frequency linear array transducer. COMPARISON: Comparison is made with relevant prior imaging in PACS. Density: There are scattered areas of fibroglandular density FINDINGS: Left Breast: No significant masses, suspicious calcifications, or other abnormalities are seen. Targeted US was performed at the area of pain as indicated by the patient from 1:00-3:00, 6 cm FN. There is no suspicious solid or cystic mass. Normal fibroglandular tissue is identified. Right Breast: No significant masses, suspicious calcifications, or other abnormalities are seen. Procedure Note Beba Aponte MD - 05/25/2021 Focal intermittent pain in the upper outer left breast for 19 months. TECHNIQUE: Digital Mammography and tomosynthesis were used to obtain images. ComputerAided Detection was used to aid in interpretation. Real-time ultrasoundwas performed using a high-frequency linear array transducer. COMPARISON: Comparison is made with relevant prior imaging in PACS. Density: There are scattered areas of fibroglandular density FINDINGS: Left Breast: No significant masses, suspicious calcifications, or other abnormalitiesare seen. Targeted US was performed at the area of pain as indicated by the patientfrom 1:00-3:00, 6 cm FN. There is no suspicious solid or cystic mass.Normal fibroglandular tissue is identified. Right Breast: No significant masses, suspicious calcifications, or other abnormalitiesare seen. IMPRESSION: Left Breast: No mammographic evidence of malignancy. No suspicioussonographic finding at the area of pain. Management of breast pain shouldbe based on the clinical level of concern. Clinical evaluation andfollow-up are recommended, with management to be determined based on theclinical assessment. Left Assessment: BI-RADS 1 Negative. Left Recommendation: Left Mammography Screening Left Recommendation Due Date: 12 Months Right Breast: Negative, no mammographic evidence of malignancy. Right Assessment: BI-RADS 1 Negative. Right Recommendation: Right Mammography Screening Right Recommendation Due Date: 12 Months OVERALL Assessment: BI-RADS 1 Negative. Results were discussed with the patient at the time of the study. The recommendation above has been entered into a reminder system tomonitor and facilitate patient compliance. us Bettina Orozco NP IMG US BREAST Final Result documented in this encounter Visit Diagnoses Diagnosis Breast pain, left Breast pain, left documented in this encounter Additional Health Concerns Assessment Noted Time PHQ-2 Depression Total Score: 1 09/19/19 21 2:57 PM EST documented as of this encounter Care Teams Pharmacology Teacher Relationship Specialty Start Date End Date Malissa Johnson MD [email or web address] PCP - General Internal Medicine 06/14/20 Ivory Jimenez MD Dermatology 04/28/18 Luis Andrews MD Dermatology 04/23/19 Malissa Johnson MD [address] [place] [phone] [email or web address] Insurance Assigned Provider 11/12/21 01/13/22 Dylan De Guzman MD [address] [place] [id number] [email or web address] Insurance Assigned Provider 01/13/22 02/17/22 Malissa Johnson MD [address] [place] [phone] Insurance Assigned Provider 02/17/22 06/16/22 Malissa Johnson MD [address] [place] [phone] Insurance Assigned Provider 12/14/23 03/20/25 documented as of this encounter Additional Source Comments The information contained in this document represents components of the legal health record. It is not the complete legal health record.[facility]
--- OUTSIDE RECORDS SUMMARY | 2025-07-08 18:08 | XMS_ITS | Encounter Summary ---
Author Organization [facility] Address [address] [facility] [address] [place] [address] Phone Care Team Providers Care Take Down Inspector Name Role Phone Ivory Jimenez MD Unavailable [phone] Luis Andrews MD Unavailable [phone] Malissa Johnson MD Primary Care Provider Malissa Johnson MD Unavailable Encounter Details Date Type Department Care Team (Late st Contact Info) Description 10/01/2022 Procedure [facility], [facility] [address] [place] [address] Social History Tobacco Use Types Packs/Day Years [...] Description 03/16/2026 8:00 AM EDT Office Visit [facility] Primary Care [address] [address] Malissa Johnson MD [address] [place] [phone] [email or web address] documented as of this encounter Visit Diagnoses Not on filedocumented in this encounter Additional Health Concerns Assessment Noted Time PHQ-2 Depression Total Score: 0 02/01/20 22 12:43 PM EDT documented as of this encounter Care Teams Take Down Inspector Relationship Specialty Start Date End Date Malissa Johnson MD PCP - General Internal Medicine 06/14/20 Ivory Jimenez MD Dermatology 04/28/18 Luis Andrews MD Dermatology 04/23/19 Malissa Johnson MD [address] [place] [phone] Insurance Assigned Provider 12/14/23 03/20/25 documented as of this encounter Additional Source Comments The information contained in this document represents components of the legal health record. It is not the complete legal health record.[facility]
--- OUTSIDE RECORDS SUMMARY | 2025-07-08 18:08 | XMS_ITS | Clinical Summary ---
Author Organization [facility] Address [address] [place] [phone] Phone Care Team Providers Care Driver Engineer Name Role Phone Jose Jimenez MD Unavailable [phone] Luis Andrews MD Unavailable Malissa Johnson MD Primary Care Provider [phone] Allergies No known active allergies Medications omeprazole (PRILOSEC) 20 MG tablet Take 20 mg by mouth as needed. Active multivitamins capsule Take 1 capsule by mouth daily. Active levocetirizine (XYZAL) 5 MG tablet Take 5 mg by mouth daily. Active Lactobacillus acidophilus (PROBIOTIC ACIDOPHILUS ORAL) Take by mouth. Activ e INTRAUTERINE DEVICE, IUD, UTRN by Intrauterine route. Planted in October 2023 Active nabumetone (RELAFEN) 500 MG tablet Take 1 tablet (500 mg total) by mouth 2 (two) times a day. 60 tablet 1 08/31/20 24 Active sertraline (ZOLOFT) 100 MG tablet Take 1.5 tablets (150 mg total) by mouth daily. 135 tablet 3 03/23/20 25 Active famotidine (PEPCID) 40 MG tablet Take 1 tablet (40 mg total) by mouth nightly at bedtime. 90 tablet 3 03/23/20 25 Active spironolactone (ALDACTONE) 50 MG tabletIndicati ons:Acne vulgaris Take 2 tablets (100 mg total) by mouth daily. 60 tablet 11 03/23/20 25 Active valACYclovir (VALTREX) 1000 MG tablet Take 1 tablet (1g) po daily. 90 tablet 1 03/23/20 25 Active gabapentin (NEURONTIN) 300 MG capsule Take 1 capsule (300 mg total) by mouth nightly at bedtime as needed (Pain). M54.16 30 capsule 2 06/28/20 25 Active gabapentin (NEURONTIN) 300 MG capsule Take 1 capsule (300 mg total) by mouth 3 (three) times a day. M54.16 90 capsule 2 03/23/20 25 025 Discontinued Active Problems Problem Noted Date Diagnosed Date Migraine 07/03/2023 Assessment & Plan (07/03/2023 4:23 PM EDT): Pt to c/w motrin for now. Will talk about other options when she comes in for OV appt. Obesity (BMI 30-39.9) 07/03/2023 Overview (02/19/2025): Does not tolerate GLP-1 RA's, did not lose weight with topamax and phentermine Assessment & Plan (02/19/2025 9:01 AM EDT): Pt to stop phentermine and topamax since it is not helping. Pt to c/w regular exercise and portion control diet. Assessment & Plan (12/11/2024 11:48 AM EDT): Pt to c/w phentermine 15 mg/day. Will increase topamax to 50 mg/day to see if this helps. Assessment & Plan (10/05/2024 8:55 AM EST): Pt does not want to re-try wegovy at this point. She is trying her best to follow WW diet. She also has a walking pad at home she is trying to get regular exercise. Other weight loss medications also discussed. Pt will consider and get back to me if she wants to try these. Assessment & Plan (04/28/2024 3:10 PM EDT): Pt is doing well with low dose of Wegovy. Will c/w 0.25 mg/week. RV 2 mos. Assessment & Plan (02/17/2024 9:29 AM EDT): Rx sent for zepbound. C/w portion control and regular exercise. Assessment & Plan (01/28/2024 3:11 PM EDT): Rx sent for zepbound. C/w portion control and regular exercise. Assessment & Plan (07/24/2023 9:30 AM EST): Medication choices discussed with pt. She would like to try GLP-1 receptor antagonist. Proper usage and side effects discussed. Sent rx for Ozempic 0.25 mg/week. RV 2 mos. Explained that she will need a PA for the medication and the drugs are in short supply. Advised pt join WW's which she has done in the past and exercise 3-4 times per week. Assessment & Plan (07/03/2023 4:24 PM EDT): Advised pt to re-join WW's. She will schedule OV to discuss GLP-1 receptor antagonists. Seasonal allergies 11/22/2021 Assessment & Plan (02/12/2023 9:24 AM EDT): Claritin helps with sx's. Assessment & Plan (02/06/2022 10:48 AM EDT): claritin helps Assessment & Plan (11/22/2021 9:53 AM EDT): Prn antihistamine and humidifier in room help Anxiety 09/23/2020 Assessment & Plan (02/19/2025 9:02 AM EDT): Pt feels her current dose of sertraline is helping. Assessment & Plan (02/17/2024 9:29 AM EDT): Referral sent to [facility] for evaluation by psychologist. C/w sertraline 150 mg/day. Assessment & Plan (02/12/2023 9:20 AM EDT): Pt feels current dose of zoloft is working well for her. Assessment & Plan (05/22/2022 9:32 AM EDT): Pt is not feeling full relief with lexapro 10 mg/day. Will increase to 15 mg/day. RV 3 mos. Pt to call sooner if not feeling better. Assessment & Plan (02/06/2022 10:50 AM EDT): Discussed rx options with pt. Will have her try lexapro 5 mg x 7d, then 10 mg/day. RV 2 mos. Also encouraged pt to see a therapist. Assessment & Plan (09/23/2020 9:43 AM EST): Pt feels she is doing ok with zoloft 100 mg/day. If she feels she needs to re-increase to 150 mg/day, pt to call. TMJ (dislocation of temporomandibular joint) Overview (02/19/2025): Pt uses ativan prn and seeing a dentist, being fitted for mouth guard, using cannabis gummies Assessment & Plan (02/19/2025 9:00 AM EDT): Pt uses cannabis gummies which helps with TMJ discomfort and insomnia. Assessment & Plan (02/06/2022 10:47 AM EDT): Sx's are controlled with mouth guard Assessment & Plan (09/23/2020 9:47 AM EST): Pt using prn ativan and will be fitted for a mouth guard soon. Assessment & Plan (07/26/2020 5:31 PM EST): Will send med to manage her discomfort till she can get mouth guard. Oral herpes simplex, not currently active 2018 Assessment & Plan (02/19/2025 9:01 AM EDT): Pt uses acyclovir daily to help prevent outbreaks Assessment & Plan (02/17/2024 9:28 AM EDT): Pt uses acyclovir daily to help prevent outbreaks Assessment & Plan (02/12/2023 9:23 AM EDT): Pt uses acyclovir daily to help prevent outbreaks Assessment & Plan (02/06/2022 10:48 AM EDT): Pt uses acyclovir to prevent outbreaks GERD (gastroesophageal reflux disease) 9 Overview (09/23/2020): EGD 2017, [facility] Assessment & Plan (02/19/2025 9:02 AM EDT): Pt feels well with pepcid. She also uses prilosec prn. Assessment & Plan (02/17/2024 9:28 AM EDT): Pt feels well with pepcid. She also uses prilosec prn. Assessment & Plan (02/12/2023 9:21 AM EDT): Pt feels well with pepcid Assessment & Plan (09/23/2020 9:44 AM EST): Pt to c/w prilosec and prevacid. Discussed lifestyle changes, wt loss. Assessment & Plan (10/17/2018 8:37 AM EST): Sx's controlled with zantac Acne vulgaris 05/15/2018 Assessment & Plan (02/19/2025 9:03 AM EDT): Pt follows with vocational counselor. Update K level today. Assessment & Plan (02/17/2024 9:27 AM EDT): Pt follows with vocational counselor. Recent K check is normal. Assessment & Plan (02/12/2023 9:19 AM EDT): Pt is no longer taking spironolactone. She follows with derm Assessment & Plan (02/06/2022 10:50 AM EDT): Pt sees a vocational counselor and uses spironolactone. K check is up to date. Assessment & Plan (08/20/2019 8:14 AM EST): Tolerating treatment well - Cont Medhat 50mg BID BP OK Recheck 1 year Assessment & Plan (04/24/2019 1:21 PM EDT): Overall doing well, ongoing activity, pt switched to OCP [id number] 3 mo ago; Cont OCP / [id number] + 125mg/d spironolactone If not doing adequately in 6 wks, can call in for increased dose 150mg/d, then will need to check random K+ as well. Assessment & Plan (05/15/2018 5:48 AM EDT): Mild inflammatory acne of the lower face. - cont clindamycin lotion and BP wash while breast feeding - consider adding topical retinoid and/or oral abx when done breast feeding History of gestational diabetes 11/20/2017 Assessment & Plan (02/19/2025 9:02 AM EDT): Update hga1c today Assessment & Plan (02/17/2024 9:27 AM EDT): Recent hga1c is normal. Assessment & Plan (01/28/2024 3:11 PM EDT): Update hga1c Assessment & Plan (02/12/2023 9:22 AM EDT): hga1c check via work was normal. Assessment & Plan (02/06/2022 10:49 AM EDT): Most recent glucose value was normal. Will continue to monitor. Assessment & Plan (10/17/2018 8:36 AM EST): hga1c is normal. Will continue to monitor. Discussed wt loss, regular exercise. Assessment & Plan (04/16/2018 2:17 PM EDT): Current hga1c normal. Will continue to monitor for signs of DM yearly. ADHD (attention deficit hyperactivity disorder) 10/04/2017 Assessment & Plan (02/19/2025 9:03 AM EDT): Pt feels her sx's are stable and manageable without medications Assessment & Plan (02/17/2024 9:26 AM EDT): Pt feels her sx's are stable and manageable without medications Assessment & Plan (02/12/2023 9:20 AM EDT): Pt feels her sx's are stable and manageable without medications Assessment & Plan (05/22/2022 9:32 AM EDT): Pt used to take adderall. She feels the ADHD is controlled and is not contributing to her current anxiety Assessment & Plan (10/04/2017 2:19 PM EST): Off meds since . Pt will let me know if sx's returning once not . Routine health maintenance 10/04/2017 Overview (02/19/2025): PE 02/19/2025 Assessment & Plan (02/19/2025 9:00 AM EDT): Advised pt to get updated covid vaccine at the pharmacy. Assessment & Plan (02/17/2024 9:27 AM EDT): Advised pt to get an updated covid vaccine. Assessment & Plan (02/12/2023 9:24 AM EDT): Advised pt to get the covid bivalent booster. Other HM up to date. Assessment & Plan (02/06/2022 10:48 AM EDT): Up to date Assessment & Plan (09/23/2020 9:43 AM EST): Will check hep C. Other HM up to date. Assessment & Plan (10/17/2018 8:36 AM EST): Up to date. RV one year for PE Assessment & Plan (10/04/2017 2:19 PM EST): Received flu shot in Jun. Will get tdap in her 3rd trimester. Other HM up to date. Personal history of malignant melanoma of skin 0 06/06/2016 Assessment & Plan (02/19/2025 9:00 AM EDT): Pt sees her vocational counselor yearly. She has not had a recurrence Assessment & Plan (02/17/2024 9:26 AM EDT): Pt sees her vocational counselor yearly. Assessment & Plan (02/12/2023 9:23 AM EDT): Pt follows closely with dermatology Assessment & Plan (05/15/2018 5:46 AM EDT): No evidence of recurrence. Continue complete skin exams q6mo Assessment & Plan (10/04/2017 2:20 PM EST): Follows closely with derm Assessment & Plan (05/25/2017 8:02 AM EDT): No evidence of recurrence. Continue complete skin exams q6mo Assessment & Plan (06/06/2016 3:51 PM EDT): Personal history of MM on the left upper back s/p wide local excision in 2006 with no evidence of recurrence. - I recommended that she bring in old records to determine breslow depth and stage - cont strict sun protection daily on face and for outdoor time on body - cont routine skin exams q6 months Resolved Problems Problem Noted Date Diagnosed Date Resolved Date Dizzy spells 11/17/2021 02/06/2022 Assessment & Plan (11/17/2021 11:45 AM EST): Per pt post covid in 09/2021. No other associated complaints. Normal ortho VS today. Normal EKG today. Normal PE today- normal neuro exam today. Check related labs. Advised on adequate rest, adequate hydration, and well-balanced diet. Change position slowly. Will determine next course of action based on results. FU as scheduled w/ pcp on 12/05/21. Return sooner prn. Advised on s/sx warranting seeking urgent/emergency care. Fibrocystic breast changes of both breasts 04/06/2021 02/06/2022 Assessment & Plan (04/06/2021 12:35 PM EDT): Repeat imaging Continues with breast pain intermittent left side, change may be r/t new iud Family history of squamous c ell carcinoma of skin 09/22/2020 07/03/2023 Family history of basal cell carcinoma (BCC) 07/03/2023 (spontaneous vaginal delivery) 01/30/2018 10/17/2018 Group B Streptococcus william r, +RV culture, currently 01/15/2018 10/17/2018 Excessive weight gain during in third trimester 01/01/2018 10/17/2018 Overview (01/27/2018): Overview: 41# at 34w Insulin controlled gestation al diabetes mellitus (GDM) in third trimester 12/17/20172017 Overview (01/27/2018): Overview: 1 hr GTT 163 3 hr 76/190/173/130 Started insulin 12/19/17 at 32 weeks 18u NPH Gestational Diabetes, on insulin: > weekly testing at 34 weeks > twice weekly testing at 36 weeks > discuss IOL starting at 39 weeks with latest advised delivery at 40 weeks > one of the NSTs can be replaced by BPP > U/S for EFW based on size-dates discrepancy Insomnia 10/04/2017 09/23/2020 Assessment & Plan (10/04/2017 2:19 PM EST): Currently using benadryl. Had been on neurontin when she wasn't . Neoplasm of uncertain behavi or of skin of abdomen 10/03/2017 10/04/2017 Overview (10/03/2017): (right lower abdomen) Disease of gingiva due to re current oral herpes simplex virus (HSV) infection 07/02/2017 Overview (01/27/2018): Overview: On daily acyclovir. Never had vaginal lesions , high-risk, matern al age 35+ primigravida 07/01/2017 10/17/2018 Overview (01/27/2018): Overview: Formatting of this note may be different from the original. G1, P0, Term0, Preterm0, Abt0, Sab0, Tab0, Ect0, Live0, Estimated Date of Delivery: 02/09/18, by [facility]MP OB/Laine Garcia MD Blanket Maker Jesi Galvan Initial OB labs: Procedure Value Date BLOOD GROUP B 07/01/2017 Procedure Value Date RH TYPE Positive 07/01/2017 Procedure Value Date ANTIBODY SCREEN Not Detected 07/01/2017 No results found for: ABORHABSCRN Procedure Value Date RUBELLA AB IGG immune 03/14/2005 No results found for: RUBIGG No results found for: RUBELLAINTER Procedure Value Date HEPATITIS B SURFACE ANTIGEN Negative 07/01/2017 No results found for: RPR Procedure Value Date SYPHILIS SCREEN INTERP Non-Reactive 07/01/2017 Procedure Value Date HIV AG/AB 4th GENERATION Non-Reactive 07/01/2017 Delivery Plans: Planned Site of Delivery: [facility]- Care provider for delivery: Undecided Elective procedure for unacc eptable cosmetic appearance 04/19/2017 10/04/2017 Epidermal inclusion cyst 03/14/201704/2019 Assessment & Plan (03/14/2017 12:55 PM EDT): Acutely inflammed cyst of the mid upper back. - 0.2cc of Kenalog 10mg/ml injected into the cyst - potential risks of atrophy and dyspigmentation reviewed. Dysplastic nevus 06/06/2016 10/04/2017 Overview (04/24/2017): (right inferior chest wall) COMPOUND NEVUS WITH ARCHITECTURAL DISORDER, MILD CYTOLOGIC ATYPIA (DYSPLASTIC NEVUS) AND RECURRENT NEVUS PHENOMENON; EXTENDING TO ONE PERIPHERAL MARGIN AND TO THE DEEP MARGIN. 04/24/17 - Excisional surgery- Assessment & Plan (06/06/2016 3:47 PM EDT): A. Irregular pigmented macule on the mid upper back BIOPSY BY SHAVE TECHNIQUE Indication: clinical suspicion of malignancy/atypia/dysplasia Site: mid upper back R/O: Dysplastic nevi vs other Appointment Specialist: Trinity Cai RN ? Informed consent was obtained. The site was confirmed by the patient and physician then photographed. The site was prepped with alcohol and then infiltrated with 1% lidocaine with epinephrine (1:100,000). The lesion was then biopsied using a Dermablade. Hemostasis was achieved with drysol. Aquaphor and a bandaid was applied to the site. There were no complications. Written wound care instructions were given to the patient. The patient was instructed to call with any concerns about healing including redness, swelling or tenderness. The patient was instructed to call the office for results if she did not hear from us within 2 weeks. B. Irregular brown macule on the right inferior chest wall BIOPSY BY SHAVE TECHNIQUE Indication: clinical suspicion of malignancy/atypia/dysplasia Site: R/O: Dysplastic nevi vs other Appointment Specialist: Trinity Cai RN ? Informed consent was obtained. The site was confirmed by the patient and physician then photographed. The site was prepped with alcohol and then infiltrated with 1% lidocaine with epinephrine (1:100,000). The lesion was then biopsied using a Dermablade. Hemostasis was achieved with drysol. Aquaphor and a bandaid was applied to the site. There were no complications. Written wound care instructions were given to the patient. The patient was instructed to call with any concerns about healing including redness, swelling or tenderness. The patient was instructed to call the office for results if she did not hear from us within 2 weeks. Dysplastic nevus 06/06/2016 09/23/2020 Overview (04/24/2017): (mid upper back) MODERATELY ATYPICAL LENTIGINOUS JUNCTIONAL MELANOCYTIC PROLIFERATION WITH RECURRENT NEVUS PHENOMENON AND SCAR; THE EXAMINED MARGINS ARE NARROWLY FREE. 04/24/17 - Excision Multiple atypical nevi 06/06/201602/16 Assessment & Plan (05/15/2018 5:45 AM EDT): Clinically atypical nevi on the trunk and history of dysplastic nevi and melanoma. Overall, nevi appear stable compared with last exam. I would like to recheck clinically atypical nevi on the left and right back in 4 mo. These were photographed and measured today - We reviewed the ABCDs of melanoma and reviewed the importance of sunscreen and sun protective clothing. Written information was provided on how to use sunscreen and perform self skin exams - follow up in 3-6 months or sooner for changes Assessment & Plan (10/10/2017 5:10 PM EST): Clinically atypical nevi on the trunk and history of dysplastic nevi. No change to the recurrent nevus on the right low back or to the prominent nevus on the right lateral chest. Nevus in the scalp also appears benign. - We reviewed the ABCDs of melanoma and reviewed the importance of sunscreen and sun protective clothing. Written information was provided on how to use sunscreen and perform self skin exams - follow up in 3-6 months or sooner for changes Assessment & Plan (05/25/2017 8:06 AM EDT): Clinically atypical nevi on the trunk and history of dysplastic nevi. There appears to be a recurrent nevus on the right low back. I do not see documentation of a biopsy in this area and Jose does not recall a biopsy in this location. The pigment appears reticulated today. We will watch and recheck/consider biopsy at follow up skin exam. I would also like to recheck the prominent nevus on the right lateral chest in 3 months. - We reviewed the ABCDs of melanoma and reviewed the importance of sunscreen and sun protective clothing. Written information was provided on how to use sunscreen and perform self skin exams - follow up in 3 months or sooner for changes Assessment & Plan (06/06/2016 3:53 PM EDT): History of mild-moderately dysplastic nevi on the trunk with clinically atypical nevi on exam today. - We reviewed the ABCDs of melanoma and reviewed the importance of sunscreen and sun protective clothing. Written information was provided on how to use sunscreen and perform self skin exams Encounters Date Type Department Care Team Description 06/27/2025 Refill Orthopedics [address] [address] Aroldo Miles MD Medication Refill from Last 3 Months Immunizations Immunization Administration Dates Next Due COVID-19 (Pre-07/01) Moderna Vaccine, mRNA, PF 10/14/2020,09/16/2020 INFLUENZA, SPLIT VIRUS, TRIV ALENT W/ PRESERVATIVE IM 06/05/2021 Influenza Quadrivalent MDCK Preservative Free IM 06/28/2020 Influenza Quadrivalent Preservative Free IM 1212/2016 Influenza, Unspecified Formulation 07/21/2024,,05/28/2018 Tdap 11/11/2017 Family History Medical History Relation Comments Alpha-1 antitrypsin deficiency Father Heart disease Father Basal cell carcinoma Maternal Grandfather Cancer Maternal Grandfather Skin cancer Pancreatic cancer Maternal Grandfather Squamous cell carcinoma Maternal Grandfather Atrial fibrillation Maternal Grandmother Hypertension Mother Basal cell carcinoma Paternal Uncle Squamous cell carcinoma Paternal Uncle Melanoma Neg Hx Relation Status Comments Father Alive Maternal Grandfather Maternal Grandmother Alive Mother Alive Paternal Uncle Sister Alive Social History Tobacco Use Types Packs/Day Years Used Date Smoking Tobacco: Former Cigarettes 0.3 10 0 01/29/2007 - 01/29/2017 Passive Smoke Exposure: Never Smokeless Tobacco: Never Tobacco Cessation:Counseling Given: Not Answered Alcohol Use Standard Drinks/Week Comments Yes 0 [...] ecorded Denied Basic Needs Not on file 02/16/2025 In the past 12 months have y ou been in a relationship with a person who hurts, threatens, or tries to control you? No 02/16/2025 Worried food would run out Not on file 02/16 In the past 12 months have y ou been in a relationship with a person who hurts, threatens, or tries to control you? No 02/16/2025 Comments No Sex and Gender Information Value Date Recorded Sex Assigned at Female 10/09/2023 3:20 PM EST Legal Sex Female 3:27 PM EDT Gender Identity Female 10/09/2023 3:20 PM EST Sexual Orientation Straight 10/09/2023 3: 20 PM EST Last Filed Vital Signs Vital Sign Reading Time Taken Comments Blood Pressure 112/58 02/19/2025 8:45 AM EDT Pulse 103 02/19/2025 8:27 AM EDT Temperature 36.3 C (97.4 F) 02/19/2025 8:27 AM EDT Respiratory Rate 20 04/06/2021 11:59 AM EDT Oxygen Saturation 98% 02/19/2025 8:27 AM EDT Inhaled Oxygen Concentration - - Weight 80.9 kg (178 lb 6.4 oz) 02/19/2025 8:27 A M EDT Height 164 cm (5' 4.57 ) 02/19/2025 8:27 AM EDT Body Mass Index 30.09 02/19/2025 8:27 AM EDT Plan of Treatment Upcoming Encounters Date Type Department Care Team (Late st Contact Info) Description 03/16/2026 8:00 AM EDT Office Visit [facility] [address] [address] Malissa Johnson MD [address] [place] [id number] Health Maintenance Due Date Last Done Comments POTASSIUM LEVEL 01/27/2025 01/28/2024, 07/10, 07/08/2023, Additional history exists INFLUENZA VACCINE (#1) 2025 4, 06/11/2023, 06/05/2021, Additional history exists COVID-19 VACCINE ( season) 2025 10/03/2021, 10/14/2020, 09/16/2020 PAP SMEAR 09/07/2025 09/07/2020, 12/27/2016 DEPRESSION SCREENING 02/16/2026 02/16/2025 MAMMOGRAM 12/25/2026 12/25/2024, 10/11, 10/01/2022, Additional history exists SCREENING FOR DIABETES 01/27/2027 , 01/28/2024, 10/26/2020, Additional history exists Adult Td,Tdap Booster 11/12/2027 11/11/2017 SMOKING STATUS SCREENING (Every 5 Years) 02/19/2030 02/19/2025 HIV ONE-TIME SCREENING (18-65 YEARS) Completed 07/01/2017 HEPATITIS C SCREENING Completed 10/21/2020, 021 HEPATITIS A VACCINES Aged Out No long er eligible based on patient's age to complete this topic HIB VACCINES Aged Out No longer eligi ble based on patient's age to complete this topic MENINGOCOCCAL VACCINES (ACWY) Aged Out No longer eligible based on patient's age to complete this topic MENINGOCOCCAL VACCINES (B) Aged Out N o longer eligible based on patient's age to complete this topic PNEUMOCOCCAL VACCINES (0-49 years) Aged Out No longer eligible based on patient's age to complete this topic Medical Devices Not on file Procedures Procedure Name Priority Date/Time Associated Diagnosis Comments BI MAMMOGRAM SCREENING WITH TOMOSYNTHESIS WITH CAD (BILATERAL) Routine 12/25/2024 12:05 PM EDT Visit for screening BASIC METABOLIC PANEL Routine 01/28/2024 3:08 PM EDT Routine health maintenance GLUCOSE Routine 10/26/2020 8:13 AM EST History of gestational diabetes HEPATITIS C ANTIBODY, QUALITATIVE Routine 10/21/2020 8:16 AM EST Routine health maintenance HM PAP SMEAR FOR RESULT ENTRY ONLY Routine 09/07/2020 OUTSIDE HIV Routine 07/01/2017 from Last 3 Months or Most Recently Relevant to Health Maintenance Results * BI MAMMOGRAM SCREENING WITH TOMOSYNTHESIS [...] Johnson MD IMG MG EXAMS Final Result * (ABNORMAL) Basic metabolic panel (01/28/2024 3:08 PM EDT) SODIUM 141 136 - 145 mmol/L [facility] CHLORIDE 103 95 - 106 mmol/L [facility] POTASSIUM 3.7 3.5 - 5.2 mmol/L [facility] CO2 24 20 - 31 mmol/L [facility] BUN 11 9 - 23 mg/dL [facility] CREATININE 0.85 0.50 - 1.30 mg/dL [facility] GLUCOSE 108(H) 74 - 106 mg/dL [facility] CALCIUM 9.7 8.7 - 10.4 mg/dL [facility] EGFR 88 >60 mL/min/1.7 3m2 [facility] Comment:Estimated glomerular filtration rate calculated using the CKD-EPI refit equation. ANION GAP 14 3 - 17 mmol/L [facility] Blood 01/28/2024 3:08 PM EDT 01/28/2024 5:50 PM EDT Malissa Johnson MD LAB BLOOD ORDERABLES Final Resul t Performing Organization Address [facility] Co de Phone Number [facility] [address] [place] [address] * (ABNORMAL) Glucose (10/26/2020 8:13 AM EST) GLUCOSE 111(H) 74 - 106 mg/dL [facility] [facility] Blood 10/26/2020 8:13 AM EST 10/26/2020 1:41 PM EST Malissa Johnson MD LAB BLOOD ORDERABLES Final Resul t Performing Organization Address [facility] Co de Phone Number [facility] [address] [place] [address] * Hepatitis C antibody, qualitative (10/21/2020 8:16 AM EST) HCV ANTIBODY Negative Negative [facility] Comment:Test Methodology: Ad via [employer] Blood 10/21/2020 8:16 AM EST 10/21/2020 12:24 PM EST us Malissa Johnson MD LAB BLOOD ORDERABLES Final Resul t [facility] [address] [place] [address] * PAP SMEAR FOR RESULT ENTRY ONLY (09/07/2020) HM Pap smear nl, neg HPV Historical Provider HEALTH MAINTENANCE Final Result * OUTSIDE HIV TEST (07/01/2017) HIV - External Neg Historical Provider LAB BLOOD ORDERABLES Rebekah l Result from Last 3 Months or Most Recently Relevant to Health Maintenance Insurance [address] [place] [id number] [employer] [facility] PLUS PPO [employer] PLUS PPO [employer]US PPO [employer]US PPO [employer]US PPO [employer] PLUS PPO [address] [place] [address] [facility] [place] [address] [address] [address] [place], [place] [address] Advance Directives For more information, please contact: [phone] (9AM - 5PM [facility], Saturday-Saturday) Documents on File Type Date Recorded Patient Motion Picture Film Examiner Expl anation Healthcare Proxy 12/16/2017 4:49 PM 018 * Full Code (Presumed) (Latest Code Status on File) Date Activated Date Inactivated Comments 01/28/2018 8:29 AM 01/30/2018 2:22 PM * Full Code (Presumed) Date Activated Date Inactivated Comments 01/27/2018 8:46 PM 01/28/2018 8:29 AM Healthcare Agents on File Name Relationship Healthcare Agent Relationship Communication Joshua Shin Spouse .Primary Health Care Agent (Proxy form on file) Care Teams Driver Engineer Relationship Specialty Start Date End Date Malissa Johnson MD [email or web address] PCP - General Internal Medicine 06/14/20 Jose Jimenez MD Dermatology 04/28/18 Luis Andrews MD Dermatology 04/23/19 Additional Source Comments The information contained in this document represents components of the legal health record. It is not the complete legal health record.[facility]
--- OUTSIDE RECORDS SUMMARY | 2025-07-08 18:08 | XMS_ITS | Encounter Summary ---
Author Organization [facility] Address [address] [employer] [facility] [address] [place] [address] Phone Care Team Providers Care Test Evaluator Name Role Phone Ivory Jimenez MD Unavailable [phone] Luis Andrews MD Unavailable Malissa Johnson MD Primary Care Provider Malissa Johnson MD Unavailable Dylan De Guzman MD Unavailable [phone] Malissa Johnson MD Unavailable Malissa Johnson MD Unavailable Encounter Details Date Type Department Care Team (Late st Contact Info) Description 05/25/2021 Ancillary Orders [facility] [address] [place] [address] Malissa Johnson MD [address] [place] [phone] Breast cancer screening by mammogram Social History Tobacco Use Types Packs/Day Years [...] Description 03/16/2026 8:00 AM EDT Office Visit [facility] [address] [address] Malissa Johnson MD [address] [place] [address] documented as of this encounter Results * (ABNORMAL) BI MAMMOGRAM SCREENING WITH TOMOSYNTHESIS WITH CAD (BILATERAL) (10/01/2022 12:00 PM EST) Anatomical Region Laterality Modality Breast Left, Breast Right, Breast Bilateral Bila teral Mammography 10/01/2022 3:31 PM EST Impressions 10/01/2022 3:35 PM EST Left Breast: Left Assessment: BI-RADS 1 Negative. Negative, no mammographic evidence of malignancy. Left Recommendation: Left Mammography Screening Left Recommendation Due Date: 12 Months Right Breast: Right Assessment: BI-RADS 0 Incomplete. Need additional imaging evaluation. Questionable asymmetry. Right Recommendation: Right Additional Imaging with diagnostic mammogram and possible limited ultrasound. Right Recommendation Due Date: To Be Scheduled OVERALL Assessment: BI-RADS 0 Incomplete. Need additional imaging evaluation. Recommend additional imaging. The patient was sent a letter with the results of the exam and follow-up recommendation, and will be called by telephone to arrange for the additional work-up recommended. You may see the results of your exam before we have called you to schedule next steps. Please know we will call you as soon as possible during normal business hours. You may also call us during normal business hours to schedule next steps. The recommendation above has been entered into a reminder system to monitor and facilitate patient compliance. Narrative 10/01/2022 3:35 PM EST Reason for exam: Screening. No new breast complaints. TECHNIQUE: Digital Mammography and tomosynthesis were used to obtain images. Computer Aided Detection was used to aid in interpretation. COMPARISON: Comparison is made with relevant prior imaging in PACS. BREAST DENSITY: There are scattered areas of fibroglandular density FINDINGS: Left Breast: No significant masses, suspicious calcifications, or other abnormalities are seen. Right Breast: A questionable asymmetry is present projecting over the upper breast on the MLO view at middle depth Procedure Note Cleo Briceno MD, MBBS - 10/01/2022 Reason for exam: Screening. No new breast complaints. TECHNIQUE: Digital Mammography and tomosynthesis were used to obtain images. ComputerAided Detection was used to aid in interpretation. COMPARISON: Comparison is made with relevant prior imaging in PACS. BREAST DENSITY: There are scattered areas of fibroglandular density FINDINGS: Left Breast: No significant masses, suspicious calcifications, or other abnormalitiesare seen. Right Breast: A questionable asymmetry is present projecting over the upper breast onthe MLO view at middle depth IMPRESSION: Left Breast: Left Assessment: BI-RADS 1 Negative. Negative, no mammographic evidence of malignancy. Left Recommendation: Left Mammography Screening Left Recommendation Due Date: 12 Months Right Breast: Right Assessment: BI-RADS 0 Incomplete. Need additional imagingevaluation. Questionable asymmetry. Right Recommendation: Right Additional Imaging with diagnostic mammogramand possible limited ultrasound. Right Recommendation Due Date: To Be Scheduled OVERALL Assessment: BI-RADS 0 Incomplete. Need additional imagingevaluation. Recommend additional imaging. The patient was sent a letter with the results of the exam and follow-uprecommendation, and will be called by telephone to arrange for theadditional work-up recommended. You may see the results of your exam before we have called you to schedulenext steps. Please know we will call you as soon as possible during normalbusiness hours. You may also call us during normal business hours toschedule next steps. The recommendation above has been entered into a reminder system tomonitor and facilitate patient compliance. us Malissa Johnson MD IMG MG EXAMS Final Result documented in this encounter Visit Diagnoses Diagnosis Breast cancer screening by mammogram Breast cancer screening by mammogram documented in this encounter Additional Health Concerns Assessment Noted Time PHQ-2 Depression Total Score: 1 09/19/19 21 2:57 PM EST documented as of this encounter Care Teams Test Evaluator Relationship Specialty Start Date End Date Malissa Johnson MD PCP - General Internal Medicine 06/14/20 Ivory Jimenez MD Dermatology 04/28/18 Luis Andrews MD Dermatology 04/23/19 Malissa Johnson MD [address] [place] [address] Insurance Assigned Provider 11/12/21 01/13/22 Dylan De Guzman MD [address] [place] [phone] [email or web address] Insurance Assigned Provider 01/13/22 02/17/22 Malissa Johnson MD [address] [place] [phone] Insurance Assigned Provider 02/17/22 06/16/22 Malissa Johnson MD [address] [place] [address] [email or web address] Insurance Assigned Provider 12/14/23 03/20/25 documented as of this encounter Additional Source Comments The information contained in this document represents components of the legal health record. It is not the complete legal health record.[facility]
--- OUTSIDE RECORDS SUMMARY | 2025-07-08 18:08 | XMS_ITS | Encounter Summary ---
Author Organization [facility] Address [address] [place] [address] Phone Care Team Providers Care Laboratory Sampler Name Role Phone Ivory Jimenez MD Unavailable [phone] Luis Andrews MD Unavailable Malissa Johnson MD Primary Care Provider [phone] Malissa Johnson MD Unavailable Encounter Details Date Type Department Care Team (Late st Contact Info) Description 11/04/2023 Procedure [facility]- Breast Imaging, [place] [address] [place] [address] Social History Tobacco Use Types Packs/Day Years Used Date Smoking Tobacco: Former Cigarettes 0.3 10 0 01/29/2007 - 01/29/2017 Passive Smoke Exposure: Never Smokeless Tobacco: Never Alcohol Use Standard Drinks/Week Comments Yes 0 (1 standard drink = 0.6 oz pur e alcohol) social Education Answer Date Recorded Are you interested in more education? Not on franics e 01/03/2023 Are you concerned about learning? [...] 03/16/2026 8:00 AM EDT Office Visit [facility] Care [address] [address] Malissa Johnson MD [address] [place] [address] documented as of this encounter Visit Diagnoses Not on filedocumented in this encounter Additional Health Concerns Assessment Noted Time PHQ-2 Depression Total Score: 1 02/06/20 23 12:24 PM EDT documented as of this encounter Care Teams Laboratory Sampler Relationship Specialty Start Date End Date Malissa Johnson MD PCP - General Internal Medicine 06/14/20 Ivory Jimenez MD Dermatology 04/28/18 Luis Andrews MD Dermatology 04/23/19 Malissa Johnson MD [address] [place] [phone] Insurance Assigned Provider 12/14/23 03/20/25 documented as of this encounter Additional Source Comments The information contained in this document represents components of the legal health record. It is not the complete legal health record.[facility]
--- OUTSIDE RECORDS SUMMARY | 2025-07-08 18:08 | XMS_ITS | Encounter Summary ---
Author Organization [facility] Address [address] [facility] [address] [place] [address] Phone Care Team Providers Care Decaler Name Role Phone Ivory Jimenez MD Unavailable [phone] Luis Andrews MD Unavailable Malissa Johnson MD Primary Care Provider [phone] Malissa Johnson MD Unavailable Dylan De Guzman MD Unavailable [phone] Malissa Johnson MD Unavailable Malissa Johnson MD Unavailable Encounter Details Date Type Department Care Team (Late st Contact Info) Description 04/06/2021 Procedure [facility]- Breast Imaging, [facility] [address] [place] [address] Social History Tobacco Use Types Packs/Day Years [...] 03/16/2026 8:00 AM EDT Office Visit [facility] Primary Care [address] [address] Malissa Johnson MD [address] [place] [address] [email or web address] documented as of this encounter Visit Diagnoses Not on filedocumented in this encounter Additional Health Concerns Assessment Noted Time PHQ-2 Depression Total Score: 1 09/19/19 21 2:57 PM EST documented as of this encounter Care Teams Decaler Relationship Specialty Start Date End Date Malissa Johnson MD PCP - General Internal Medicine 06/14/20 Ivory Jimenez MD Dermatology 04/28/18 Luis Andrews MD Dermatology 04/23/19 Malissa Johnson MD [address] [place] [address] Insurance Assigned Provider 11/12/21 01/13/22 Dylan De Guzman MD [address] [place] [phone] Insurance Assigned Provider 01/13/22 02/17/22 Malissa Johnson MD [address] [place] [address] [email or web address] Insurance Assigned Provider 02/17/22 06/16/22 Malissa Johnson MD [address] [place] [address] [email or web address] Insurance Assigned Provider 12/14/23 03/20/25 documented as of this encounter Additional Source Comments The information contained in this document represents components of the legal health record. It is not the complete legal health record.[facility]
--- OUTSIDE RECORDS SUMMARY | 2025-07-08 18:08 | XMS_ITS | Encounter Summary ---
Author Organization [facility] Address [address] [place] [address] Phone Care Team Providers Care Program Evaluator Name Role Phone Ivory Jimenez MD Unavailable [phone] Luis Andrews MD Unavailable Malissa Johnson MD Primary Care Provider Malissa Johnson MD Unavailable Dylan De Guzman MD Unavailable [phone] Malissa Johnson MD Unavailable Malissa Johnson MD Unavailable Encounter Details Date Type Department Care Team (Late st Contact Info) Description 05/25/2021 Procedure [facility]- Breast Imaging- [address] [address] Social History Tobacco Use Types Packs/Day Years [...] 03/16/2026 8:00 AM EDT Office Visit [facility] Primary Care [address] [address] Malissa Johnson MD [address] [place] [address] documented as of this encounter Visit Diagnoses Not on filedocumented in this encounter Additional Health Concerns Assessment Noted Time PHQ-2 Depression Total Score: 0 02/01/20 12:43 PM EDT documented as of this encounter Care Teams Program Evaluator Relationship Specialty Start Date End Date Malissa Johnson MD PCP - General Internal Medicine 06/14/20 Ivory Jimenez MD Dermatology 04/28/18 Luis Andrews MD Dermatology 04/23/19 Malissa Johnson MD [address] [place] [address] Insurance Assigned Provider 11/12/21 01/13/22 Dylan De Guzman MD [address] [place] [phone] Insurance Assigned Provider 01/13/22 02/17/22 Malissa Johnson MD [address] [place] [address] [email or web address] Insurance Assigned Provider 02/17/22 06/16/22 Malissa Johnson MD [address] [place] [address] [email or web address] Insurance Assigned Provider 12/14/23 03/20/25 documented as of this encounter Additional Source Comments The information contained in this document represents components of the legal health record. It is not the complete legal health record.[facility]
--- OUTSIDE RECORDS SUMMARY | 2025-07-08 18:08 | XMS_ITS | Encounter Summary ---
Author Organization [facility] Address [address] [place] [address] Phone Care Team Providers Care All Source Collection Manager Name Role Phone Ivory Jimenez MD Unavailable [phone] Luis Andrews MD Unavailable Malissa Johnson MD Primary Care Provider Malissa Johnson MD Unavailable Encounter Details Date Type Department Care Team (Late st Contact Info) Description 01/21/2024 Procedure [facility]- Breast Imaging[address] [address] Social History Tobacco Use Types Packs/Day Years [...] with a working camera? Not on file 05 / Comments No Sex and Gender Information Value [...] Description 03/16/2026 8:00 AM EDT Office Visit [facility] Primary Care [address] [address] Malissa Johnson MD [address] [place] [address] [email or web address] documented as of this encounter Visit Diagnoses Not on filedocumented in this encounter Additional Health Concerns Assessment Noted Time PHQ-2 Depression Total Score: 2 02/13/20 24 10:46 AM EDT documented as of this encounter Care Teams All Source Collection Manager Relationship Specialty Start Date End Date Malissa Johnson MD PCP - General Internal Medicine 06/14/20 Ivory Jimenez MD Dermatology 04/28/18 Luis Andrews MD Dermatology 04/23/19 Malissa Johnson MD [address] [place] [address] Insurance Assigned Provider 12/14/23 03/20/25 documented as of this encounter Additional Source Comments The information contained in this document represents components of the legal health record. It is not the complete legal health record.[facility]
--- OUTSIDE RECORDS SUMMARY | 2025-07-08 18:08 | XMS_ITS | Encounter Summary ---
Author Organization [facility] Address [address] [place] [address] Phone Care Team Providers Care Assistant Housekeeping Manager Name Role Phone Ivory Jimenez MD Unavailable [phone] Luis Andrews MD Unavailable [phone] Malissa Johnson MD Primary Care Provider [phone] Malissa Johnson MD Unavailable Malissa Johnson MD Unavailable Encounter Details Date Type Department Care Team (Late st Contact Info) Description 05/28/2022 Transcribe Orders [facility] [address] [place] [address] Ese Arriaga [address] [place] [address] [email or web address] Social History Tobacco Use Types Packs/Day Years [...] 03/16/2026 8:00 AM EDT Office Visit [facility] Primary Care [address] [address] Malissa Johnson MD [address] [place] [address] documented as of this encounter Visit Diagnoses Not on filedocumented in this encounter Additional Health Concerns Assessment Noted Time PHQ-2 Depression Total Score: 0 02/01/20 22 12:43 PM EDT documented as of this encounter Care Teams Assistant Housekeeping Manager Relationship Specialty Start Date End Date Malissa Johnson MD PCP - General Internal Medicine 06/14/20 Ivory Jimenez MD Dermatology 04/28/18 Luis Andrews MD Dermatology 04/23/19 Malissa Johnson MD [address] [place] [phone] Insurance Assigned Provider 02/17/22 06/16/22 Malissa Johnson MD [address] [place] [phone] Insurance Assigned Provider 12/14/23 03/20/25 documented as of this encounter Additional Source Comments The information contained in this document represents components of the legal health record. It is not the complete legal health record.[facility]
--- OUTSIDE RECORDS SUMMARY | 2025-07-08 18:08 | XMS_ITS | Encounter Summary ---
Author Organization [facility] Address [address] [place] [address] Phone Care Team Providers Care Ham Pumper Name Role Phone Ivory Jimenez MD Unavailable Luis Andrews MD Unavailable [phone] Malissa Johnson MD Primary Care Provider Malissa Johnson MD Unavailable Encounter Details Date Type Department Care Team (Late st Contact Info) Description 10/01/2022 Ancillary Orders [facility] [address] [place] [address] Malissa Johnson MD [address] [place] [address] [email or web address] Social History Tobacco Use Types Packs/Day Years [...] 03/16/2026 8:00 AM EDT Office Visit [facility] Primary Care [address] [address] Malissa Johnson MD [address] [place] [address] documented as of this encounter Visit Diagnoses Not on filedocumented in this encounter Additional Health Concerns Assessment Noted Time PHQ-2 Depression Total Score: 0 02/01/20 22 12:43 PM EDT documented as of this encounter Care Teams Ham Pumper Relationship Specialty Start Date End Date Malissa Johnson MD PCP - General Internal Medicine 06/14/20 Ivory Jimenez MD Dermatology 04/28/18 Luis Andrews MD Dermatology 04/23/19 Malissa Johnson MD [address] [place] [phone] Insurance Assigned Provider 12/14/23 03/20/25 documented as of this encounter Additional Source Comments The information contained in this document represents components of the legal health record. It is not the complete legal health record.[facility]
--- OUTSIDE RECORDS SUMMARY | 2025-07-08 18:08 | XMS_ITS | Encounter Summary ---
Author Organization [facility] Address [address] [place] [id number] Phone Care Team Providers Care Book Agent Name Role Phone Ivory Jimenez MD Unavailable [phone] Luis Andrews MD Unavailable [phone] Malissa Johnson MD Primary Care Provider Malissa Johnson MD Unavailable Encounter Details Date Type Department Care Team (Late st Contact Info) Description 11/04/2023 Ancillary Orders [facility]- Breast Imaging, [facility] [address] [place], [place] [id number] Malissa Johnson MD [address] [place] [phone] [email or web address] Abnormal finding on breast imaging (Primary Dx) Social History Tobacco Use Types [...] Description 03/16/2026 8:00 AM EDT Office Visit [facility] [address] [address] Malissa Johnson MD [address] [place] [phone] [email or web address] documented as of this encounter Results * BI MAMMOGRAM DIAGNOSTIC WITH TOMOSYNTHESIS WITH CAD (LEFT) (12/05/2023 1:11 PM EDT) Anatomical Region Laterality Modality Breast Left, Breast Bilateral Left Ma mmography 12/05/2023 1:20 PM EDT Impressions 12/05/2023 1:31 PM EDT Findings questioned on screening mammography in the left breast do not persist. No mammographic evidence of malignancy on the left. Annual screening mammography is recommended. BI-RADS 1 NEGATIVE Results and recommendations were communicated to the patient at time of examination. Narrative 12/05/2023 1:31 PM EDT BI MAMMOGRAM DIAGNOSTIC WITH TOMOSYNTHESIS WITH CAD (LEFT) Additional patient information: Asymmetry on recent screening mammogram. COMPARISON: Comparison is made with relevant prior imaging. Breast composition: There are scattered areas of fibroglandular density. FINDINGS: Left Mammogram: The asymmetry seen on screening mammography in the central left breast does not persist, consistent with superimposition of normal breast tissue. There is no underlying mass, architectural distortion, suspicious calcifications or other concerning findings. Procedure Note Niru Franco MD - 12/05/2023 BI MAMMOGRAM DIAGNOSTIC WITH TOMOSYNTHESIS WITH CAD (LEFT) Additional patient information: Asymmetry on recent screening mammogram. COMPARISON: Comparison is made with relevant prior imaging. Breast composition: There are scattered areas of fibroglandular density. FINDINGS: Left Mammogram: The asymmetry seen on screening mammography in the central left breastdoes not persist, consistent with superimposition of normal breast tissue.There is no underlying mass, architectural distortion, suspiciouscalcifications or other concerning findings. IMPRESSION: Findings questioned on screening mammography in the left breast do notpersist. No mammographic evidence of malignancy on the left. Annualscreening mammography is recommended. BI-RADS 1 NEGATIVE Results and recommendations were communicated to the patient at time ofexamination. Malissa Johnson MD IMG MG EXAMS Final Result documented in this encounter Visit Diagnoses Diagnosis Abnormal finding on breast imaging- Primary Abnormal finding on breast imaging documented in this encounter Additional Health Concerns Assessment Noted Time PHQ-2 Depression Total Score: 1 02/06/20 23 12:24 PM EDT documented as of this encounter Care Teams Book Agent Relationship Specialty Start Date End Date Malissa Johnson MD PCP - General Internal Medicine 06/14/20 Ivory Jimenez MD Dermatology 04/28/18 Luis Andrews MD Dermatology 04/23/19 Malissa Johnson MD [address] [place] [id number] Insurance Assigned Provider 12/14/23 03/20/25 documented as of this encounter Additional Source Comments The information contained in this document represents components of the legal health record. It is not the complete legal health record.[facility]
--- OUTSIDE RECORDS SUMMARY | 2025-07-08 18:09 | XMS_ITS | Encounter Summary ---
Author Organization [facility] Address [address] [place] [address] Phone Care Team Providers Care Smoke Chaser Name Role Phone Ivory Jimenez MD Unavailable Luis Andrews MD Unavailable [phone] Malissa Johnson MD Primary Care Provider [phone] Malissa Johnson MD Unavailable Encounter Details Date Type Department Care Team (Late st Contact Info) Description 11/04/2023 Ancillary Orders [facility]- Breast Imaging, [facility] [address] [place], [place] [id number] Malissa Johnson MD [address] [place] [phone] [email or web address] Abnormal finding on breast imaging (Primary Dx) [...] Description 03/16/2026 8:00 AM EDT Office Visit [facility] [address] [address] Malissa Johnson MD [address] [place] [phone] [email or web address] documented as of this encounter Visit Diagnoses Diagnosis Abnormal finding on breast imaging- Primary documented in this encounter Additional Health Concerns Assessment Noted Time PHQ-2 Depression Total Score: 1 02/06/20 23 12:24 PM EDT documented as of this encounter Care Teams Smoke Chaser Relationship Specialty Start Date End Date Malissa Johnson MD PCP - General Internal Medicine 06/14/20 Ivory Jimenez MD Dermatology 04/28/18 Luis Andrews MD Dermatology 04/23/19 Malissa Johnson MD [address] [place] [phone] [email or web address] Insurance Assigned Provider 12/14/23 03/20/25 documented as of this encounter Additional Source Comments The information contained in this document represents components of the legal health record. It is not the complete legal health record.[facility]
== END 2025-07-08 16:55 | disposition home or self-care (01) ==
LOC: HO.HMCFM 15:47
PROVIDERS: PCP Physician Assistant Medical; Visit Provider Physician Assistant Medical
DX: Z23 Encounter for immunization (principal)

== ENCOUNTER → 2025-07-08 15:46 | Outpatient (BNVA) | payer OTHER, SELFPAY | PROVIDERS: Visit Provider Physician Assistant Medical | DX: Z23 Encounter for immunization (principal); Z13.6 Encounter for screening for cardiovascular disorders; F41.9 Anxiety disorder, unspecified; F32.A Depression, unspecified; L70.9 Acne, unspecified; B00.9 Herpesviral infection, unspecified; K21.9 Gastro-esophageal reflux disease without esophagitis; Z86.32 Personal history of gestational diabetes | CPT/HCPCS: 90471; 90656; 96127 ==